=== PATIENT | female | born 1955 | race African-American/Black ===

== ENCOUNTER 2017-09-25 15:29 | Inpatient (IN) | payer OTHER ==
[2017-09-25 17:37] VITALS: BMI 19.2
--- NOTE | 2017-09-25 20:54 | HP ---
CIWA Score - CIWA Score Nausea/Vomitin-Mild Nausea/No Vomiting Muscle Tremors: 2 Anxiety: 2 Agitation: 0-Normal Activity Paroxysmal Sweats: 2 Orientation: 1-Uncertain about Date Tacttile Disturbances: 1-Very Mild Itch/Numbness Auditory Disturbances: 1-Very Mild Visual Disturbances: 1-Very Mild Sensitivity Headache: 2-Mild CIWA-Ar Total Score: 13 Admission ROS BHS - HPI Chief Complaint: WITHDRAWAL SYMPTOMS Allergies/Adverse Reactions: Allergies Allergy/AdvReac Type Severity Reaction Status Date / Time mushroom Allergy Verified 09/25/17 19:33 Penicillins Allergy Verified 09/25/17 19:33 History of Present Illness: 62 Y.O. WOMAN WITH AN EXTENSIVE HISTORY OF ALCOHOL AND COCAINE IS HERE SEEKING DETOX SERVICES. SHE REPORTS SHE LAST COMPLETED DETOX/REHAB IN 1988. SHE STATES SHE IS CURRENTLY ENROLLED AT [facility] AND REPORTS SHE WAS LAST MEDICATED TODAY AT 80MG OF METHADONE. Exam Limitations: No Limitations - Ebola screening Have you traveled outside of the country in the last 21 days: No (N) Have you had contact with anyone from an Ebola affected area: No Have you been sick,other than usual withdrawal symptoms: No Do you have a fever: No - Review of Systems Constitutional: Chills, Loss of Appetite, Unintentional Wgt. Loss EENT: reports: Blurred Vision, Tearing Respiratory: reports: No Symptoms reported Cardiac: reports: No Symptoms Reported GI: reports: No Symptoms Reported : reports: No Symptoms Reported Musculoskeletal: reports: No Symptoms Reported Integumentary: reports: No Symptoms Reported Neuro: reports: Numbness, Seizure (LAST SZ: CAN'T RECALL DATE; "LONG TIME AGO") Endocrine: reports: No Symptoms Reported Hematology: reports: No Symptoms Reported Psychiatric: reports: Judgement Intact, Mood/Affect Appropiate, Anxious, Depressed Other Systems: Reviewed and Negative Patient History - Patient Medical History Hx Anemia: No Hx Asthma: No Hx Chronic Obstructive Pulmonary Disease (COPD): Yes (BRONCHITIS ) Hx Cancer: No Hx Cardiac Disorders: No Hx Congestive Heart Failure: No Hx Hypertension: Yes (ON MEDS ) Hx Hypercholesterolemia: No Hx Pacemaker: No HX Cerebrovascular Accident: No Hx Seizures: Yes ("LONG TIME AGO") Hx Dementia: No Hx Diabetes: No Hx Gastrointestinal Disorders: No Hx Liver Disease: No Hx Genitourinary Disorders: No Hx Sexually Transmitted Disorders: No Hx Renal Disease (ESRD): No Hx Thyroid Disease: No Hx Human Immunodeficiency Virus (HIV): No Hx Hepatitis C: Yes (UNTREATED ) Hx Depression: Yes Hx Suicide Attempt: No Hx Bipolar Disorder: No Hx Schizophrenia: No - Patient Surgical History Past Surgical History: Yes Hx Orthopedic Surgery: Yes (LEFT KNEE REPAIR: 1973 ) Hx Hysterectomy: Yes (2007) Anesthesia Reaction: No - PPD History Previous Implant?: Yes Documented Results: Positive w/o proof Results: ORDERED CXR PPD to be Administered?: No - Reproductive History Patient is a Female of Child Bearing Age (11 -55 yrs old): No - Smoking Cessation Smoking history: Current every day smoker Have you smoked in the past 12 months: Yes Aproximately how many cigarettes per day: 5 Initiated information on smoking cessation: Yes 'Breaking Loose' booklet given: 09/25/17 - Substance & Tx. History Hx Alcohol Use: Yes Hx Substance Use: Yes Substance Use Type: Alcohol, Cocaine Hx Substance Use Treatment: Yes (DETOX/REHAB: 1988) - Substances Abused Cocaine Route: Inhalation Frequency: Daily Amount used: $80 Age of first use: 23 Date of Last Use: 09/25/17 Alcohol Route: Oral Frequency: 3-6 times per week Amount used: 1 PINT VODKA Age of first use: 15 Date of Last Use: 09/25/17 PERCOCET Route: Oral Frequency: 1-2 times per week Amount used: 1 TAB 10 MG Age of first use: 57 Date of Last Use: 09/18/17 Family Disease History - Family Disease History Family History: Denies Admission Physical Exam [facility] - Vital Signs Vital Signs: Vital Signs - 24 hr 09/25/17 17:34 Temperature 98.1 F Pulse Rate 65 Respiratory 18 Rate Blood Pressure 116/64 - Physical General Appearance: Yes: Anxious HEENTM: Yes: Hearing grossly Normal, Normocephalic, Normal Voice Respiratory: Yes: Chest Non-Tender, Lungs Clear, Normal Breath Sounds, No Respiratory Distress, No Accessory Muscle Use Neck: Yes: No masses,lesions,Nodules, Trachea in good position Breast: Yes: Breast Exam Deferred Cardiology: Yes: Regular Rhythm, Regular Rate Abdominal: Yes: Normal Bowel Sounds, Non Tender Genitourinary: Yes: Other Back: Yes: Normal Inspection Musculoskeletal: Yes: full range of Motion, Gait Steady Extremities: Yes: Normal Capillary Refill, Normal Inspection, Normal Range of Motion, Non-Tender Neurological: Yes: Alert, Motor Strength 5/5, Normal Mood/Affect, Normal Response Integumentary: Yes: Normal Color, Dry, Warm Lymphatic: Yes: Within Normal Limits - Diagnostic (1) Hypertension Current Visit: Yes Status: Chronic (2) Alcohol dependence, uncomplicated Current Visit: Yes Status: Chronic (3) Opioid dependence on agonist therapy Current Visit: Yes Status: Chronic (4) Bronchitis Current Visit: Yes Status: Chronic (5) Muscle spasm of back Current Visit: Yes Status: Chronic (6) PPD positive, treated Current Visit: Yes Status: Chronic (7) HCV (hepatitis C virus) Current Visit: Yes Status: Chronic (8) History of seizure Current Visit: Yes Status: Inactive Cleared for Admission [facility] - Detox or Rehab [facility] Level of Care: Medically Managed Detox Regimen/Protocol: Librium [facility] Breath Alcohol Content Breath Alcohol Content: 0.015 Urine Pregancy Test - Result Urine Test Results: Negative- NO Line Present Urine Drug Screen - Results Drug Screen Negative: No Urine Drug Screen Results: ORAL-Cocaine, MTD-Methadone
[2017-09-25] MEDS ORDERED: hydrOXYzine PAMOATE 50 MG CAPSULE (FP) PO PRN (20:58)
[2017-09-25] MEDS ORDERED: chlordiazePOXIDE HCL 25 MG CAPSULE PO PRN (20:58)
[2017-09-25] MEDS ORDERED: guaiFENesin/D-METHORPHAN HB 10 ML UNIT-DOSE CUPS PO PRN (20:58)
[2017-09-25] MEDS ORDERED: MAG HYDROX/AL HYDROX/SIMETH 30 ML UNIT-DOSE CUP PO PRN (20:58)
[2017-09-25] MEDS ORDERED: MAGNESIUM CITRATE 300 ML BOTTLE PO PRN (20:58)
[2017-09-25] MEDS ORDERED: MAGNESIUM HYDROX 2400MG/30ML ORAL SUSPENSION 30 ML CUP PO PRN (20:58)
[2017-09-25] MEDS ORDERED: P-EPHED 60MG/TRIPROLIDI 2.5MG TABLET PO PRN (20:58)
[2017-09-25] MEDS ORDERED: IBUPROFEN 400 MG TABLET (FP) PO PRN (20:58)
[2017-09-25] MEDS ORDERED: chlordiazePOXIDE HCL 25 MG CAPSULE PO ONE (20:58)
[2017-09-25] MEDS ORDERED: ACETAMINOPHEN 325 MG TABLET (FP) PO PRN (20:58)
[2017-09-25] MEDS ORDERED: LOPERAMIDE HCL 2 MG CAPSULE PO PRN (20:58)
[2017-09-25] MEDS ORDERED: MENTHOL/PHENOL 1 EACH UD MM PRN (20:58)
[2017-09-25] MEDS ORDERED: MELATONIN 5 MG TABLETS PO PRN (22:00)
[2017-09-25] MEDS: chlordiazePOXIDE HCL 25 MG CAPSULE PO SCH (23:55)
[2017-09-25] MEDS: THIAMINE HCL 100 MG TABLET (FP) PO SCH (23:58)
[2017-09-26 02:54] LABS: URINE APPEARANCE SLCLOUDY; URINE BILIRUBIN NEGATIVE (<2.0 mg/dL); URINE COLOR YELLOW; URINE GLUCOSE (UA) NEGATIVE (NEGATIVE); URINE KETONE NEGATIVE (NEGATIVE); URINE LEUK ESTERASE TRACE (NEGATIVE); URINE NITRITE NEGATIVE (NEGATIVE); URINE PROTEIN NEGATIVE (NEGATIVE)
[2017-09-26 03:26] LABS: CALCIUM OXALATE CRYSTALS FEW /hpf (NONE SEEN); EPI CELLS RARE /HPF (FEW); URINE HYALINE CAST 3 /lpf; URINE MUCUS RARE
[2017-09-26] MEDS: chlordiazePOXIDE HCL 25 MG CAPSULE PO SCH ×4 (05:32→22:15)
--- NOTE | 2017-09-26 09:38 | EKG ---
Test Reason : Blood Pressure : / mmHG Vent. Rate : 058 BPM Atrial Rate : 058 BPM P-R Int : 166 ms QRS Dur : 072 ms QT Int : 478 ms P-R-T Axes : 082 051 041 degrees QTc Int : 469 ms SINUS BRADYCARDIA WITH OCCASIONAL PREMATURE VENTRICULAR COMPLEXES NO PREVIOUS ECGS AVAILABLE Confirmed by RAMON KIRBY MD ([id number]) on 09/26/2017 9:37:55 AM Referred By: Confirmed By:RAMON KIRBY MD
[2017-09-26] MEDS ORDERED: ALBUTEROL SO4 8 GM HFA INHALER IH PRN (10:00)
--- NOTE | 2017-09-26 10:30 | CONSULT ---
[facility] Psychiatric Consult - Data Date of interview: 09/26/17 Admission source: [facility] Identifying data: Patient is a 62 year old woman, mother of two, domiciled, and supported by SSI/SSD. This is patient's first admission to detox. Patient admitted to for alcohol and cocaine dependence. Substance Abuse History: Smoking Cessation. Smoking history: Current every day smoker. Have you smoked in the past 12 months: Yes. Aproximately how many cigarettes per day: 5. Initiated information on smoking cessation: Yes. ' Breaking Loose' booklet given: 09/25/17. - Substance & Tx. History. Hx Alcohol Use: Yes. Hx Substance Use: Yes. Substance Use Type: Alcohol, Cocaine. Hx Substance Use Treatment: Yes (DETOX/REHAB: 1988). - Substances Abused. Cocaine. Route: Inhalation. Frequency: Daily. Amount used: $80. Age of first use: 23. Date of Last Use: 09/25/17. Alcohol. Route: Oral. Frequency: 3-6 times per week. Amount used: 1 PINT VODKA. Age of first use: 15. Date of Last Use: 09/25/17. PERCOCET. Route: Oral. Frequency: 1-2 times per week. Amount used: 1 TAB 10 MG. Age of first use: 57. Date of Last Use: 09/18/17 Medical History: hypertension, Seizures, Hep C, bronchitis, Left knee repair in 1993. Psychiatric History: Pt. denies h/o psychatric hospitalization, outpatient care , and suicide attempt. Pt. reports difficulty coping since her 's two years ago. Physical/Sexual Abuse/Trauma History: Denies. Mental Status Exam - Mental Status Exam Alert and Oriented to: Time, Place, Person Cognitive Function: Good Patient Appearance: Well Groomed Mood: Euthymic Affect: Mood Congruent Patient Behavior: Appropriate, Cooperative Speech Pattern: Appropriate Voice Loudness: Normal Thought Process: Intact, Goal Oriented Thought Disorder: Not Present Hallucinations: Denies Suicidal Ideation: Denies Homicidal Ideation: Denies Insight/Judgement: Poor Sleep: Poorly Appetite: Fair Muscle strength/Tone: Normal Gait/Station: Normal Psychiatric Findings - Problem List ([place] 1, 2,3) (1) Alcohol dependence, uncomplicated Current Visit: Yes Status: Chronic (2) Bronchitis Current Visit: Yes Status: Chronic (3) Hypertension Current Visit: Yes Status: Chronic (4) Opioid dependence on agonist therapy Current Visit: Yes Status: Chronic (5) PPD positive, treated Current Visit: Yes Status: Chronic (6) Substance induced mood disorder Current Visit: Yes Status: Suspected - Initial Treatment Plan Initial Treatment Plan: Psychoeducation provided. Detoxification in progress. Observation.
[2017-09-26 10:44] LABS: HEMATOCRIT 34.9 % (32.4-45.2); HEMOGLOBIN 11.6 GM/dL (10.7-15.3); MCH 31.7 pg (25.7-33.7); MCHC 33.2 g/dl (32.0-36.0); MEAN CELL VOLUME 95.5 fl (80-96); MEAN PLT VOLUME 8.9 fl (7.5-11.1); PLATELET COUNT 183 K/MM3 (134-434); RBC 3.65 M/mm3 (3.60-5.2); RDW 13.4 % (11.6-15.6); WHITE BLOOD COUNT 4.8 K/mm3 (4.0-10.0)
[2017-09-26] MEDS: PRENATAL VITAMINS W/ FOLIC ACID TABLET (FP) PO SCH (10:48)
[2017-09-26 11:21] LABS: CHLORIDE 109 mmol/L (98-107); SODIUM 143 mmol/L (136-145)
[2017-09-26] MEDS: LISINOPRIL 10 MG TABLET (FP) PO SCH (11:25)
[2017-09-26] MEDS: amLODIPine BESYLATE 5 MG TABLET (FP) PO SCH (11:25)
[2017-09-26 11:41] LABS: ALBUMIN 3.1 g/dl (3.4-5.0); ALK PHOS 90 U/L (45-117); ANION GAP 8 (8-16); BILIRUBIN,TOTAL 0.3 mg/dL (0.2-1.0); BLOOD UREA NITROGEN 11 mg/dL (7-18); CO2 26 mmol/L (21-32); CREATININE 0.7 mg/dL (0.55-1.02); GLUCOSE,RANDOM 98 mg/dL (74-106); SGPT/ALT 38 U/L (12-78); TOT PROT 6.8 g/dl (6.4-8.2)
[2017-09-26 11:48] LABS: POTASSIUM 4.1 mmol/L (3.5-5.1); SGOT/AST 37 U/L (15-37)
[2017-09-26] MEDS ORDERED: METHADONE HCL 40 MG DISPERSABLE TABLET PO ONE (12:40)
--- NOTE | 2017-09-26 13:10 | PN ---
S CIWA - CIWA Score Nausea/Vomitin-No Nausea/No Vomiting Muscle Tremors: None Anxiety: 2 Agitation: 1-Slight > Activity Paroxysmal Sweats: No Perspiration Orientation: 0-Oriented Tacttile Disturbances: 0-None Auditory Disturbances: 0-None Visual Disturbances: 0-None Headache: 0-None Present CIWA-Ar Total Score: 3
--- NOTE | 2017-09-26 13:10 | PN ---
[facility] Progress Note (SOAP) Subjective: 62 Y.O. WOMAN WITH AN EXTENSIVE HISTORY OF ALCOHOL AND COCAINE IS HERE SEEKING DETOX SERVICES. Pt doing well, roaming the halls. Verification of methadone dose done. Pt would like to wear own shoes, socks are slippery for her Objective: 09/26/17 13:08 CBC, BMP 09/26/17 07:40 09/26/17 07:40 Vital Signs - 24 hr 09/25/17 09/25/17 09/26/17 17:34 23:55 00:30 Temperature 98.1 F 98.1 F Pulse Rate 65 62 Respiratory 18 18 18 Rate Blood Pressure 116/64 148/68 09/26/17 09/26/17 09/26/17 03:30 06:19 10:24 Temperature 97.5 F L 97.9 F Pulse Rate 55 L 60 Respiratory 18 18 18 Rate Blood Pressure 134/61 117/57 VSS pt ambulatory grossly nl PE Assessment: 09/26/17 13:08 doing well with alcohol detox protocol Plan: continue alcohol detox reinstate methadone 80mg Ok to use own shoes
--- NOTE | 2017-09-26 16:26 | PN ---
S Progress Note Note: pt states using cane at home- ordered. Also pt would like to use own shoes, socks are slippery for her
[2017-09-26] MEDS: CYCLOBENZAPRINE HCL 10 MG TABLET (FP) PO PRN (22:14)
[2017-09-26] MEDS: THIAMINE HCL 100 MG TABLET (FP) PO SCH (22:14)
[2017-09-27] MEDS: chlordiazePOXIDE HCL 25 MG CAPSULE PO SCH ×3 (05:29→17:40)
[2017-09-27] MEDS: PRENATAL VITAMINS W/ FOLIC ACID TABLET (FP) PO SCH (10:18)
[2017-09-27] MEDS: amLODIPine BESYLATE 5 MG TABLET (FP) PO SCH (10:18)
[2017-09-27] MEDS: LISINOPRIL 10 MG TABLET (FP) PO SCH (10:18)
[2017-09-27] MEDS ORDERED: METHADONE HCL 10 MG TABLET PO SCH (11:15)
[2017-09-27] MEDS: METHADONE HCL 40 MG DISPERSABLE TABLET PO SCH (11:31)
--- NOTE | 2017-09-27 14:06 | PN ---
S CIWA - CIWA Score Nausea/Vomitin Muscle Tremors: 3 Anxiety: 3 Agitation: 2 Paroxysmal Sweats: 1-Minimal Palms Moist Orientation: 0-Oriented Tacttile Disturbances: 1-Very Mild Itch/Numbness Auditory Disturbances: 1-Very Mild Visual Disturbances: 0-None Headache: 2-Mild CIWA-Ar Total Score: 16 S Progress Note (SOAP) Subjective: alert,irritable,anxious,interrupted sleep,tremor Objective: 09/27/17 14:04 Vital Signs Temperature 97.7 F 09/27/17 09:20 Pulse Rate 56 L 09/27/17 09:20 Respiratory Rate 16 09/27/17 09:20 Blood Pressure 147/80 09/27/17 09:20 O2 Sat by Pulse Oximetry (%) Laboratory Last Values WBC 4.8 K/mm3 (4.0-10.0) 09/26/17 07:40 RBC 3.65 M/mm3 (3.60-5.2) 09/26/17 07:40 Hgb 11.6 GM/dL (10.7-15.3) 09/26/17 07:40 Hct 34.9 % (32.4-45.2) 09/26/17 07:40 MCV 95.5 fl (80-96) 09/26/17 07:40 MCH 31.7 pg (25.7-33.7) 09/26/17 07:40 MCHC 33.2 g/dl (32.0-36.0) 09/26/17 07:40 RDW 13.4 % (11.6-15.6) 09/26/17 07:40 Plt Count 183 K/MM3 (134-434) 09/26/17 07:40 MPV 8.9 fl (7.5-11.1) 09/26/17 07:40 Sodium 143 mmol/L (136-145) 09/26/17 07:40 Potassium 4.1 mmol/L (3.5-5.1) 09/26/17 07:40 Chloride 109 mmol/L (98-107) H 09/26/17 07:40 Carbon Dioxide 26 mmol/L (21-32) 09/26/17 07:40 Anion Gap 8 (8-16) 09/26/17 07:40 BUN 11 mg/dL (7-18) 09/26/17 07:40 Creatinine 0.7 mg/dL (0.55-1.02) 09/26/17 07:40 Creat Clearance w eGFR > 60 (>60) 09/26/17 07:40 Random Glucose 98 mg/dL (74-106) 09/26/17 07:40 Calcium 8.0 mg/dL (8.5-10.1) L 09/26/17 07:40 Total Bilirubin 0.3 mg/dL (0.2-1.0) 09/26/17 07:40 AST 37 U/L (15-37) 09/26/17 07:40 ALT 38 U/L (12-78) 09/26/17 07:40 Alkaline Phosphatase 90 U/L (45-117) 09/26/17 07:40 Total Protein 6.8 g/dl (6.4-8.2) 09/26/17 07:40 Albumin 3.1 g/dl (3.4-5.0) L 09/26/17 07:40 Urine Color Yellow 09/26/17 01:30 Urine Appearance Slcloudy 09/26/17 01:30 Urine pH 5.0 (5.0-8.0) 09/26/17 01:30 Ur Specific [place] 1.021 (1.001-1.035) 09/26/17 01:30 Urine Protein Negative (NEGATIVE) 09/26/17 01:30 Urine Glucose (UA) Negative (NEGATIVE) 09/26/17 01:30 Urine Ketones Negative (NEGATIVE) 09/26/17 01:30 Urine Blood Negative (NEGATIVE) 09/26/17 01:30 Urine Nitrite Negative (NEGATIVE) 09/26/17 01:30 Urine Bilirubin Negative (<2.0 mg/dL) 09/26/17 01:30 Urine Urobilinogen 2.0 mg/dL (0.2-1.0) H 09/26/17 01:30 Ur Leukocyte Esterase Trace (NEGATIVE) 09/26/17 01:30 Urine WBC (Auto) 3 /hpf (3-5) 09/26/17 01:30 Urine RBC (Auto) 2 /hpf (0-3) 09/26/17 01:30 Ur Epithelial Cells Rare /HPF (FEW) 09/26/17 01:30 Calcium Oxalate Crystal Few /hpf (NONE SEEN) 09/26/17 01:30 Hyaline Casts 3 /lpf 09/26/17 01:30 Urine Mucus Rare 09/26/17 01:30 RPR Titer Nonreactive (NONREACTIVE) 09/26/17 07:40 Assessment: 09/27/17 14:05 withdrawal symptom Plan: continue detox
[2017-09-27] MEDS: chlordiazePOXIDE 5 MG CAPSULE PO SCH (22:16)
[2017-09-27] MEDS: THIAMINE HCL 100 MG TABLET (FP) PO SCH (22:16)
[2017-09-27] MEDS: CYCLOBENZAPRINE HCL 10 MG TABLET (FP) PO PRN (22:16)
[2017-09-28] MEDS: chlordiazePOXIDE 5 MG CAPSULE PO SCH ×3 (05:56→17:19)
[2017-09-28] MEDS: METHADONE HCL 40 MG DISPERSABLE TABLET PO SCH (05:56)
--- NOTE | 2017-09-28 10:19 | EKG ---
Test Reason : Blood Pressure : / mmHG Vent. Rate : 054 BPM Atrial Rate : 054 BPM P-R Int : 170 ms QRS Dur : 074 ms QT Int : 478 ms P-R-T Axes : 079 047 033 degrees QTc Int : 453 ms SINUS BRADYCARDIA OTHERWISE NORMAL ECG WHEN COMPARED WITH ECG OF 25-SEP-2017 22:57, PREMATURE VENTRICULAR COMPLEXES ARE NO LONGER PRESENT Confirmed by DAVIS BARTON MD ([id number]) on 09/28/2017 10:18:54 AM Referred By: Confirmed By:DAVIS BARTON MD
[2017-09-28] MEDS: amLODIPine BESYLATE 5 MG TABLET (FP) PO SCH (10:33)
[2017-09-28] MEDS: LISINOPRIL 10 MG TABLET (FP) PO SCH (10:33)
[2017-09-28] MEDS: PRENATAL VITAMINS W/ FOLIC ACID TABLET (FP) PO SCH (10:33)
--- NOTE | 2017-09-28 13:48 | PN ---
BHS Progress Note (SOAP) Subjective: feeling better less sweat no tremor sleep better at night no gi distress Objective: 09/28/17 13:48 Vital Signs Temperature 98.1 F 09/28/17 09:50 Pulse Rate 60 09/28/17 09:50 Respiratory Rate 16 09/28/17 09:50 Blood Pressure 127/60 09/28/17 09:50 O2 Sat by Pulse Oximetry (%) Laboratory Last Values WBC 4.8 K/mm3 (4.0-10.0) 09/26/17 07:40 RBC 3.65 M/mm3 (3.60-5.2) 09/26/17 07:40 Hgb 11.6 GM/dL (10.7-15.3) 09/26/17 07:40 Hct 34.9 % (32.4-45.2) 09/26/17 07:40 MCV 95.5 fl (80-96) 09/26/17 07:40 MCH 31.7 pg (25.7-33.7) 09/26/17 07:40 MCHC 33.2 g/dl (32.0-36.0) 09/26/17 07:40 RDW 13.4 % (11.6-15.6) 09/26/17 07:40 Plt Count 183 K/MM3 (134-434) 09/26/17 07:40 MPV 8.9 fl (7.5-11.1) 09/26/17 07:40 Sodium 143 mmol/L (136-145) 09/26/17 07:40 Potassium 4.1 mmol/L (3.5-5.1) 09/26/17 07:40 Chloride 109 mmol/L (98-107) H 09/26/17 07:40 Carbon Dioxide 26 mmol/L (21-32) 09/26/17 07:40 Anion Gap 8 (8-16) 09/26/17 07:40 BUN 11 mg/dL (7-18) 09/26/17 07:40 Creatinine 0.7 mg/dL (0.55-1.02) 09/26/17 07:40 Creat Clearance w eGFR > 60 (>60) 09/26/17 07:40 Random Glucose 98 mg/dL (74-106) 09/26/17 07:40 Calcium 8.0 mg/dL (8.5-10.1) L 09/26/17 07:40 Total Bilirubin 0.3 mg/dL (0.2-1.0) 09/26/17 07:40 AST 37 U/L (15-37) 09/26/17 07:40 ALT 38 U/L (12-78) 09/26/17 07:40 Alkaline Phosphatase 90 U/L (45-117) 09/26/17 07:40 Total Protein 6.8 g/dl (6.4-8.2) 09/26/17 07:40 Albumin 3.1 g/dl (3.4-5.0) L 09/26/17 07:40 Urine Color Yellow 09/26/17 01:30 Urine Appearance Slcloudy 09/26/17 01:30 Urine pH 5.0 (5.0-8.0) 09/26/17 01:30 Ur Specific [place] 1.021 (1.001-1.035) 09/26/17 01:30 Urine Protein Negative (NEGATIVE) 09/26/17 01:30 Urine Glucose (UA) Negative (NEGATIVE) 09/26/17 01:30 Urine Ketones Negative (NEGATIVE) 09/26/17 01:30 Urine Blood Negative (NEGATIVE) 09/26/17 01:30 Urine Nitrite Negative (NEGATIVE) 09/26/17 01:30 Urine Bilirubin Negative (<2.0 mg/dL) 09/26/17 01:30 Urine Urobilinogen 2.0 mg/dL (0.2-1.0) H 09/26/17 01:30 Ur Leukocyte Esterase Trace (NEGATIVE) 09/26/17 01:30 Urine WBC (Auto) 3 /hpf (3-5) 09/26/17 01:30 Urine RBC (Auto) 2 /hpf (0-3) 09/26/17 01:30 Ur Epithelial Cells Rare /HPF (FEW) 09/26/17 01:30 Calcium Oxalate Crystal Few /hpf (NONE SEEN) 09/26/17 01:30 Hyaline Casts 3 /lpf 09/26/17 01:30 Urine Mucus Rare 09/26/17 01:30 RPR Titer Nonreactive (NONREACTIVE) 09/26/17 07:40 lab noted increase oral fluid Assessment: 09/28/17 13:50 mild withdrawal sx Plan: medically supervised detox cane shoes oral fluid
[2017-09-28] MEDS: chlordiazePOXIDE HCL 10 MG CAPSULE PO SCH (22:19)
[2017-09-28] MEDS: CYCLOBENZAPRINE HCL 10 MG TABLET (FP) PO PRN (22:19)
[2017-09-28] MEDS: THIAMINE HCL 100 MG TABLET (FP) PO SCH (22:19)
[2017-09-29] MEDS: METHADONE HCL 40 MG DISPERSABLE TABLET PO SCH (05:35)
[2017-09-29] MEDS: chlordiazePOXIDE HCL 10 MG CAPSULE PO SCH ×2 (05:35→11:12)
--- NOTE | 2017-09-29 08:47 | DS ---
[facility] Detox Discharge Summary Admission Date: 09/25/17 Discharge Date: 09/29/17 - History Present History: Alcohol Dependence Additional Comments: 62 years old female admitted on 09/25/17 for alcohol withdrawal sx completed alcohol detox regimen tolerated well denies alcohol withdrawal sx alert oriented x 3 no acute distress [place]care [facility] [place] Physical Exam Results Vital Signs: Vital Signs Temperature 97.7 F 09/29/17 06:00 Pulse Rate 64 09/29/17 06:00 Respiratory Rate 16 09/29/17 06:00 Blood Pressure 100/54 09/29/17 06:00 O2 Sat by Pulse Oximetry (%) Pertinent Admission Physical Exam Findings: alcohol withdrawal sx Vital Signs Temperature 97.7 F 09/29/17 06:00 Pulse Rate 64 09/29/17 06:00 Respiratory Rate 16 09/29/17 06:00 Blood Pressure 100/54 09/29/17 06:00 O2 Sat by Pulse Oximetry (%) Laboratory Last Values WBC 4.8 K/mm3 (4.0-10.0) 09/26/17 07:40 RBC 3.65 M/mm3 (3.60-5.2) 09/26/17 07:40 Hgb 11.6 GM/dL (10.7-15.3) 09/26/17 07:40 Hct 34.9 % (32.4-45.2) 09/26/17 07:40 MCV 95.5 fl (80-96) 09/26/17 07:40 MCH 31.7 pg (25.7-33.7) 09/26/17 07:40 MCHC 33.2 g/dl (32.0-36.0) 09/26/17 07:40 RDW 13.4 % (11.6-15.6) 09/26/17 07:40 Plt Count 183 K/MM3 (134-434) 09/26/17 07:40 MPV 8.9 fl (7.5-11.1) 09/26/17 07:40 Sodium 143 mmol/L (136-145) 09/26/17 07:40 Potassium 4.1 mmol/L (3.5-5.1) 09/26/17 07:40 Chloride 109 mmol/L (98-107) H 09/26/17 07:40 Carbon Dioxide 26 mmol/L (21-32) 09/26/17 07:40 Anion Gap 8 (8-16) 09/26/17 07:40 BUN 11 mg/dL (7-18) 09/26/17 07:40 Creatinine 0.7 mg/dL (0.55-1.02) 09/26/17 07:40 Creat Clearance w eGFR > 60 (>60) 09/26/17 07:40 Random Glucose 98 mg/dL (74-106) 09/26/17 07:40 Calcium 8.0 mg/dL (8.5-10.1) L 09/26/17 07:40 Total Bilirubin 0.3 mg/dL (0.2-1.0) 09/26/17 07:40 AST 37 U/L (15-37) 09/26/17 07:40 ALT 38 U/L (12-78) 09/26/17 07:40 Alkaline Phosphatase 90 U/L (45-117) 09/26/17 07:40 Total Protein 6.8 g/dl (6.4-8.2) 09/26/17 07:40 Albumin 3.1 g/dl (3.4-5.0) L 09/26/17 07:40 Urine Color Yellow 09/26/17 01:30 Urine Appearance Slcloudy 09/26/17 01:30 Urine pH 5.0 (5.0-8.0) 09/26/17 01:30 Ur Specific [place] 1.021 (1.001-1.035) 09/26/17 01:30 Urine Protein Negative (NEGATIVE) 09/26/17 01:30 Urine Glucose (UA) Negative (NEGATIVE) 09/26/17 01:30 Urine Ketones Negative (NEGATIVE) 09/26/17 01:30 Urine Blood Negative (NEGATIVE) 09/26/17 01:30 Urine Nitrite Negative (NEGATIVE) 09/26/17 01:30 Urine Bilirubin Negative (<2.0 mg/dL) 09/26/17 01:30 Urine Urobilinogen 2.0 mg/dL (0.2-1.0) H 09/26/17 01:30 Ur Leukocyte Esterase Trace (NEGATIVE) 09/26/17 01:30 Urine WBC (Auto) 3 /hpf (3-5) 09/26/17 01:30 Urine RBC (Auto) 2 /hpf (0-3) 09/26/17 01:30 Ur Epithelial Cells Rare /HPF (FEW) 09/26/17 01:30 Calcium Oxalate Crystal Few /hpf (NONE SEEN) 09/26/17 01:30 Hyaline Casts 3 /lpf 09/26/17 01:30 Urine Mucus Rare 09/26/17 01:30 RPR Titer Nonreactive (NONREACTIVE) 09/26/17 07:40 lab noted - Treatment Hospital Course: Detox Protocol Followed, Detoxed Safely, Responded well, Discharged Condition Good, Rehab Referral Accepted Patient has Accepted [place] [facility] [place] Medication Discharge Medications: Ambulatory Orders Albuterol Sulfate Inhaler - [Ventolin HFA Inhaler -] 2 inh PO Q4H PRN #1 inhaler 09/28/17 Amlodipine Besylate 5 mg PO DAILY #30 tablet 09/28/17 Lisinopril 10 mg PO DAILY #30 tablet 09/28/17 - Diagnosis (1) Alcohol dependence with uncomplicated withdrawal Current Visit: Yes Status: Acute (2) Methadone maintenance therapy patient Current Visit: Yes Status: Chronic (3) HCV (hepatitis C virus) Current Visit: Yes Status: Resolved Qualifiers: Viral hepatitis chronicity: unspecified Hepatic coma status: without hepatic coma Qualified Code(s): B19.20 - Unspecified viral hepatitis C without hepatic coma (4) Hypertension Current Visit: Yes Status: Chronic Qualifiers: Hypertension type: essential hypertension Qualified Code(s): I10 - Essential (primary) hypertension (5) PPD positive, treated Current Visit: Yes Status: Resolved - AMA Did Patient Leave Against Medical Advice: No
[2017-09-29] MEDS: PRENATAL VITAMINS W/ FOLIC ACID TABLET (FP) PO SCH (10:30)
[2017-09-29] MEDS: LISINOPRIL 10 MG TABLET (FP) PO SCH (10:30)
[2017-09-29] MEDS: amLODIPine BESYLATE 5 MG TABLET (FP) PO SCH (10:30)
[2017-09-29 13:32] VITALS: BP 114/54; PULSE 65; TEMP 97.5
== END 2017-09-29 15:03 | disposition home or self-care (01) | DRG 897 ==
LOC: YASAS 15:29 → Y6N 21:53
PROVIDERS: ADMIT Surgery; ATTEND Surgery
PROC: HZ2ZZZZ Detoxification Services for Substance Abuse Treatment (ICD-10-PCS; principal; 2017-09-25)
DX: F10.230 Alcohol dependence with withdrawal, uncomplicated (principal); F11.20 Opioid dependence, uncomplicated; F17.210 Nicotine dependence, cigarettes, uncomplicated; F19.24 Other psychoactive substance dependence with psychoactive substance-induced mood disorder; J42 Unspecified chronic bronchitis; I10 Essential (primary) hypertension; B19.20 Unspecified viral hepatitis C without hepatic coma; R76.11 Nonspecific reaction to tuberculin skin test without active tuberculosis; M62.830 Muscle spasm of back; Z86.69 Personal history of other diseases of the nervous system and sense organs; Z88.0 Allergy status to penicillin
CPT/HCPCS: 36415; 71046-TC-FY; 80053; 81003; 81015; 85027; 86593; 93005; 93010